=== PATIENT | male | born 1980 | race Caucasian/White ===

== ENCOUNTER → 2021-02-06 09:37 | Outpatient (BNVA) | payer OTHER, SELFPAY | PROVIDERS: Visit Provider Urology ==

== ENCOUNTER → 2021-03-20 14:22 | Outpatient (BNVA) | payer OTHER, SELFPAY | PROVIDERS: Visit Provider Urology ==

== ENCOUNTER 2022-02-02 11:19 | Outpatient (REF) | payer OTHER, SELFPAY ==
[2022-02-02 13:30] LABS: PSA,Total (Free>4and<10) < 0.05 ng/mL (0.00-4.00)
[2022-02-03 07:33] LABS: Lutenizing Hormone 0.9 mIU/mL (1.5-9.3)
[2022-02-08 14:07] LABS: Testosterone, Free 217.4 pg/mL (35.0-155.0); Testosterone, Total 856 ng/dL (250-1100)
[2022-02-10 22:57] LABS: Estradiol Ultra Sensitive 15 pg/mL (< OR = 29)
== END 2022-02-02 11:20 | disposition home or self-care (01) ==
LOC: HO.LAB 11:19
PROVIDERS: Urology; Visit Provider Urology
DX: Z12.5 Encounter for screening for malignant neoplasm of prostate (principal); E29.1 Testicular hypofunction; Z85.46 Personal history of malignant neoplasm of prostate
CPT/HCPCS: 36415; 82670; 83002; 84153; 84402; 84403

== ENCOUNTER 2022-05-25 14:51 | Outpatient (REF) | payer OTHER, SELFPAY ==
[2022-05-25 16:37] LABS: Prostate Specific Antigen < 0.10 ng/mL (<0.05-4.0)
[2022-05-31 10:37] LABS: Testosterone, Total 319 ng/dL (250-1100)
== END 2022-05-25 14:52 | disposition home or self-care (01) ==
LOC: HO.LAB 14:51
PROVIDERS: Visit Provider Urology
DX: Z12.5 Encounter for screening for malignant neoplasm of prostate (principal); C61 Malignant neoplasm of prostate; E29.1 Testicular hypofunction
CPT/HCPCS: 36415; 84153; 84403

== ENCOUNTER → 2022-07-01 13:48 | Outpatient (BNVA) | payer OTHER, SELFPAY | PROVIDERS: Visit Provider Urology | DX: Z13.89 Encounter for screening for other disorder (principal) ==

== ENCOUNTER → 2022-07-02 08:30 | Outpatient (BNVA) | payer OTHER, SELFPAY | PROVIDERS: Visit Provider Urology | DX: E29.1 Testicular hypofunction (principal) ==

== ENCOUNTER 2022-09-22 15:17 | Outpatient (REF) | payer OTHER, SELFPAY ==
[2022-09-22 17:02] LABS: PSA,Total (Free>4and<10) < 0.10 ng/mL (0.00-4.00)
== END 2022-09-22 15:18 | disposition home or self-care (01) ==
LOC: HO.LAB 15:17
PROVIDERS: Visit Provider Urology
DX: Z12.5 Encounter for screening for malignant neoplasm of prostate (principal); C61 Malignant neoplasm of prostate
CPT/HCPCS: 36415; 84153

== ENCOUNTER → 2022-09-24 10:09 | Outpatient (BNVA) | payer OTHER, SELFPAY | PROVIDERS: Visit Provider Urology | DX: Z13.89 Encounter for screening for other disorder (principal) ==